=== PATIENT | female | born 1980 | race Caucasian/White ===

== ENCOUNTER 2020-12-22 08:18 | Day surgery (SDC) | payer OTHER ==
[~2020-12-22] VITALS: Ht 157.5 cm; Wt 34.0 kg
[2020-12-22] MEDS ORDERED: GASTROGRAFIN 120 ML ONE (10:06)
[2020-12-22 11:50] VITALS: BP_SYST 113
== END 2020-12-22 11:15 | disposition home or self-care (01) ==
LOC: SDS 08:18
PROVIDERS: ATTEND Internal Medicine Gastroenterology
DX: K94.23 Gastrostomy malfunction (principal); Z79.899 Other long term (current) drug therapy; Z20.822 Contact with and (suspected) exposure to COVID-19
CPT/HCPCS: 36415; 43762; 74240; 87426; Q9963; 43760